=== PATIENT | male | born 1955 | race Caucasian/White ===

== ENCOUNTER → 2020-08-18 | Outpatient (CLI) | payer OTHER ==
[~2020-08-18] MED LIST: COLC0.6T37 PO; CYAN-27 PO; DICL25PO15 TP; DICY10CA3 PO; GABA300C PO; GLIP5TAB10 PO; LIDO35.46 TP; LOSA25TA25 PO; METF500T17 PO; PRIM50TA34 PO; PROP40TA PO; SIMV20TA19 PO; SODI100P18 TP; TAMS-11 PO; TEST5GEL17 TP
[2020-08-18 14:26] LABS: ALANINE AMINOTRANSFERASE 37 U/L (12-78); ALBUMIN 4.4 g/dL (3.4-5.0); ANION GAP 4 mmol/L (5-15); CALCIUM 9.5 mg/dL (8.5-10.1); CHLORIDE 105 mmol/L (98-107)
[2020-08-18 14:28] LABS: ALKALINE PHOSPHATASE 74 U/L (45-117); BILIRUBIN,TOTAL 0.6 mg/dL (0.2-1.0); TOTAL PROTEIN 8.6 g/dL (6.4-8.2)
[2020-08-18 14:32] LABS: MICROSCOPIC INDICATED
== END | disposition home or self-care (01) ==
LOC: STAR 12:48
PROVIDERS: ATTEND Urology
DX: Z01.812 Encounter for preprocedural laboratory examination (principal); Z20.828 Contact with and (suspected) exposure to other viral communicable diseases; N20.0 Calculus of kidney
CPT/HCPCS: 80053; 81001; 87086; 87635; 93005

== ENCOUNTER 2020-08-23 06:00 | Observation (INO) | payer OTHER ==
[~2020-08-23] VITALS: Ht 188 cm; Wt 103.5 kg
[2020-08-23 07:26] VITALS: BP 182/103
[2020-08-23] MEDS ORDERED: CHLORHEXIDINE 15 ML UDC MM ONE (07:30)
[2020-08-23] MEDS ORDERED: LACTATED RINGERS 1,000 ML IV SCH (07:30)
[2020-08-23] MEDS ORDERED: CHLORHEXIDINE 15 ML UDC ONE (07:31)
[2020-08-23] MEDS ORDERED: LIDOCAINE 1%, 10ML ONE (07:47)
[2020-08-23] MEDS ORDERED: FLUMAZENIL 0.1 MG/1 ML, 5ML ONE ×2 (08:08→11:40)
[2020-08-23] MEDS ORDERED: MIDAZOLAM 1 MG/ML, 5ML ONE ×2 (08:08→09:26)
[2020-08-23] MEDS ORDERED: FENTANYL PF 100 MCG/2ML ONE ×2 (08:08→12:19)
[2020-08-23] MEDS ORDERED: NALOXONE 1 MG/ML, 2ML ONE (08:09)
[2020-08-23] MEDS ORDERED: HALOPERIDOL 5 MG/ML IV PRN (09:00)
[2020-08-23] MEDS ORDERED: HYDROcodone/APAP 7.5-325MG/15ML UDC PO PRN (09:00)
[2020-08-23] MEDS ORDERED: DIPHENHYDRAMINE 50 MG/ML, 1ML IVPush PRN (09:00)
[2020-08-23] MEDS ORDERED: HYDROmorphone 1 MG/ML, 1ML INJ IVPush PRN (09:00)
[2020-08-23] MEDS ORDERED: METOCLOPRAMIDE 5 MG/ML, 2ML IVPush PRN (09:00)
[2020-08-23] MEDS ORDERED: ALBUTEROL/IPRATROPIUM 2.5MG/0.5MG, 3 ML NPPB PRN (09:00)
[2020-08-23] MEDS ORDERED: LORazepam 2 MG/ML, 1ML IVPush PRN (09:00)
[2020-08-23] MEDS ORDERED: METHOCARBAMOL 1,000 MG in DEXTROSE 5% 100 ML IV PRN (09:00)
[2020-08-23] MEDS ORDERED: EPHEDRINE 50 MG/ML, 1ML IM PRN (09:00)
[2020-08-23] MEDS ORDERED: EPHEDRINE 50 MG/ML, 1ML IVPush PRN (09:00)
[2020-08-23] MEDS ORDERED: OXYcodone 5 MG/5 ML ORAL.SOL UDC PO PRN (09:00)
[2020-08-23] MEDS ORDERED: KETOROLAC 30 MG/1 ML IVPush PRN (09:00)
[2020-08-23] MEDS ORDERED: MEPERIDINE/PF 25MG/0.5ML IVPush PRN (09:00)
[2020-08-23] MEDS ORDERED: ACETAMINOPHEN 325 MG TABLET PO PRN (09:00)
[2020-08-23] MEDS ORDERED: ONDANSETRON 2MG/ML, 2ML IVPush PRN (09:00)
[2020-08-23] MEDS ORDERED: MIDAZOLAM 1 MG/ML, 2ML IV PRN (09:00)
[2020-08-23] MEDS ORDERED: hydrALAzine 20 MG/ML, 1ML IV PRN (09:00)
[2020-08-23] MEDS ORDERED: DIAZEPAM 5 MG/ML, 2ML IVPush PRN (09:00)
[2020-08-23] MEDS ORDERED: ROCURONIUM 10MG/ML,5ML ONE (09:26)
[2020-08-23] MEDS ORDERED: LIDOCAINE-MPF 2% ,5ML ONE (09:26)
[2020-08-23] MEDS ORDERED: GLYCOPYRROLATE 0.2MG/1ML, 5ML ONE (09:26)
[2020-08-23] MEDS ORDERED: PROPOFOL 10 MG/ML, 20ML ONE (09:26)
[2020-08-23] MEDS ORDERED: FENTANYL PF 250 MCG/5ML ONE (09:26)
[2020-08-23] MEDS ORDERED: DEXAMETHASONE 4 MG/ML, 1ML ONE (09:26)
[2020-08-23] MEDS ORDERED: CEFAZOLIN 1,000 MG ONE (10:39)
[2020-08-23] MEDS ORDERED: ONDANSETRON 2MG/ML, 2ML IV PRN (12:00)
[2020-08-23] MEDS ORDERED: LABETALOL 5MG/ML, 20ML ONE (12:15)
[2020-08-23] MEDS: LABETALOL 5MG/ML, 20ML IV PRN ×3 (12:16→12:58)
[2020-08-23] MEDS: FENTANYL PF 100 MCG/2ML IV PRN ×3 (12:20→12:51)
[2020-08-23] MEDS ORDERED: KETOROLAC 30 MG/1 ML ONE (12:39)
[2020-08-23] MEDS ORDERED: OXYcodone 5 MG/5 ML ORAL.SOL UDC ONE (12:39)
[2020-08-23] MEDS ORDERED: ACETAMINOPHEN 650 MG/20.3 ML UDC ONE (12:39)
[2020-08-23] MEDS ORDERED: hydrALAzine 20 MG/ML, 1ML ONE (13:01)
[2020-08-23 13:35] VITALS: BP 145/85
[2020-08-23] MEDS: LACTATED RINGERS 1,000 ML IV SCH (14:22)
[2020-08-23] MEDS: metFORMIN 500 MG TABLET PO SCH (17:10)
[2020-08-23] MEDS: GABAPENTIN 300 MG CAPSULE PO SCH ×2 (17:10→21:00)
[2020-08-23] MEDS: PROPRANOLOL 40 MG TABLET PO SCH (17:10)
[2020-08-23] MEDS: OXYcodone/APAP 5/325MG TABLET PO PRN (17:16)
[2020-08-23] MEDS ORDERED: PRIMIDONE 50 MG TABLET PO SCH (21:00)
[2020-08-23] MEDS ORDERED: SIMVASTATIN 20 MG TABLET PO SCH (21:00)
[2020-08-23 21:32] VITALS: BP 121/79
[2020-08-23 23:58] VITALS: BP 122/87
[2020-08-24] MEDS: OXYcodone/APAP 5/325MG TABLET PO PRN ×2 (02:41→11:05)
[2020-08-24] MEDS: LACTATED RINGERS 1,000 ML IV SCH (02:41)
[2020-08-24 03:58] VITALS: BP 132/76
[2020-08-24] MEDS: PROPRANOLOL 40 MG TABLET PO SCH (05:40)
[2020-08-24 06:53] VITALS: BP 150/77
[2020-08-24] MEDS: metFORMIN 500 MG TABLET PO SCH (08:10)
[2020-08-24] MEDS: GABAPENTIN 300 MG CAPSULE PO SCH (08:10)
[2020-08-24] MEDS ORDERED: LOSARTAN 25MG TABLET PO SCH (09:00)
[2020-08-24] MEDS ORDERED: COLCHICINE 0.6 MG CAPSULE PO SCH (09:00)
[2020-08-24] MEDS ORDERED: TAMSULOSIN 0.4 MG CAP.ER.24H PO SCH (09:00)
[2020-08-24] MEDS ORDERED: CYANOCOBALAMIN 1,000 MCG TABLET PO SCH (09:00)
[2020-08-24] MEDS ORDERED: HYDR-3240 PO (11:35)
[2020-08-24 14:06] VITALS: BP 156/82
== END 2020-08-24 14:24 | disposition home or self-care (01) ==
LOC: OUT 06:00 → 4NE 11:52 → OUT 14:22 → DCLOUNGE 08-24 14:16
PROVIDERS: ADMIT Urology; ATTEND Urology
DX: N20.0 Calculus of kidney (principal); I10 Essential (primary) hypertension; G47.30 Sleep apnea, unspecified; E11.9 Type 2 diabetes mellitus without complications; K21.9 Gastro-esophageal reflux disease without esophagitis; Z87.891 Personal history of nicotine dependence; Z87.442 Personal history of urinary calculi; Z79.899 Other long term (current) drug therapy; Z79.84 Long term (current) use of oral hypoglycemic drugs
CPT/HCPCS: 50081; 50433; 74425; 82360; 82962; 88300; 96360; 96361; 99156; 99157; C1727; C1729; C1751; C1758; C1769; C1894; C2617; C2625; C2627; G0378; J0360; J0690; J1100; J1885; J2250; J2704; J3010; J3490; J7120; J2310